=== PATIENT | male | born 1945 | race African-American/Black ===

== ENCOUNTER 2022-01-28 09:25 | Emergency (ER) | payer MEDICARE, OTHER ==
[~2022-01-28] VITALS: Ht 182.9 cm; Wt 104.3 kg
[2022-01-28 10:58] LABS: Basophils # (auto) 0 10 ^3/uL (0-0.2); Basophils % (auto) 0.4 % (0.0-2.0); Eosinophils # (auto) 0.1 10 ^3/uL (0-0.8); Eosinophils % (auto) 1.4 % (0.0-7.0); Hematocrit 36.7 % (41.0-53.0); Hemoglobin 12.7 g/dL (13.5-17.5); Lymphocytes # (auto) 1.1 10 ^3/uL (0.4-5.4); Lymphocytes % (auto) 15.1 % (10.0-50.0); Mean Corpuscular Hemoglobin 32.7 pg (28.0-32.0); Mean Corpuscular Hgb Conc. 34.5 g/dL (32.0-36.0); Mean Corpuscular Volume 94.7 fL (80.0-100.0); Monocytes # (auto) 0.4 10 ^3/uL (0-1.3); Monocytes % (auto) 5.3 % (0.0-12.0); Neutrophils # (auto) 5.4 10 ^3/uL (1.6-8.6); Neutrophils % (auto) 77.8 % (37.0-80.0); Red Blood Cells 3.87 10^6/uL (4.5-5.90); Red Cell Distribution Width 13.8 % (11.8-14.3)
[2022-01-28 11:36] LABS: BUN/Creatinine Ratio 10.7; Calcium 10.4 mg/dL (8.5-10.1); Potassium 3.3 mmol/L (3.5-5.1)
[2022-01-28 11:44] LABS: Bilirubin, Total 0.4 mg/dL (0.2-1.0); Total Protein 6.3 g/dL (6.4-8.2)
[2022-01-28] MEDS ORDERED: POTASSIUM EFFERVESENT TAB 25 MEQ PO ONE (12:00)
[2022-01-28 13:28] VITALS: BP 160/100
== END 2022-01-28 13:40 | disposition short-term general hospital (02) ==
LOC: EDBD 09:25 → ER 09:25
DX: R55 Syncope and collapse (principal); E78.5 Hyperlipidemia, unspecified; I10 Essential (primary) hypertension
CPT/HCPCS: 36415; 71045; 80053; 83735; 83880; 84484; 85025; 93005

== ENCOUNTER 2023-03-06 10:33 | Emergency (ER) | payer OTHER ==
[~2023-03-06] VITALS: Ht 185.4 cm; Wt 122.0 kg
[2023-03-06 11:23] LABS: Basophils # (auto) 0 10 ^3/uL (0-0.2); Basophils % (auto) 0.3 % (0.0-2.0); Eosinophils # (auto) 0.1 10 ^3/uL (0-0.8); Eosinophils % (auto) 1.1 % (0.0-7.0); Hemoglobin 11.7 g/dL (13.5-17.5); Mean Corpuscular Hgb Conc. 33.6 g/dL (32.0-36.0); Mean Corpuscular Volume 98.4 fL (80.0-100.0); Monocytes # (auto) 0.7 10 ^3/uL (0-1.3); Monocytes % (auto) 6.8 % (0.0-12.0); Neutrophils # (auto) 7.2 10 ^3/uL (1.6-8.6); Neutrophils % (auto) 71.8 % (37.0-80.0); Nucleated Red Blood Cells % 0.2 %; Red Blood Cells 3.55 10^6/uL (4.5-5.90); Red Cell Distribution Width 13.1 % (11.8-14.3)
[2023-03-06 11:30] LABS: Albumin 2.9 g/dL (3.4-5.0); Calcium 9.1 mg/dL (8.5-10.1)
[2023-03-06] MEDS ORDERED: EPINEPHrine HCL 1 MG/10 ML SYRG ONE (11:30)
[2023-03-06 11:33] LABS: BUN/Creatinine Ratio 13.9 (10.0-20.0); Bilirubin, Total 0.6 mg/dL (0.2-1.0); Total Protein 5.9 g/dL (6.4-8.2)
[2023-03-06] MEDS ORDERED: CALCIUM GLUC 1,000mg/50ml-NS 50 ML IV ONE ×2 (11:36→11:45)
[2023-03-06] MEDS ORDERED: EPINEPHrine HCL 1 MG/10 ML SYRG IV ONE (11:45)
[2023-03-06] MEDS ORDERED: CALCIUM GLUC 1,000mg/50ml-NS 100 ML IV ONE (11:51)
[2023-03-06] MEDS ORDERED: POTASSIUM CHL 20 Meq TABLET PO ONE (12:00)
[2023-03-06] MEDS ORDERED: SOD CHL 0.9%/ KCL 40MEQ 1,000 ML IV ONE (12:00)
[2023-03-06 12:25] LABS: INR 1.15 (0.9-1.15); Partial Thromboplastin Time 23.6 sec (24.6-33.4)
[2023-03-06] MEDS: CALCIUM GLUC 1,000mg/50ml-NS 50 ML IV SCH ×2 (12:53→12:54)
[2023-03-06 16:02] VITALS: BP 146/88
== END 2023-03-06 16:40 | disposition short-term general hospital (02) ==
LOC: EDBD 10:33 → ER 10:33
DX: I48.91 Unspecified atrial fibrillation (principal); I49.8 Other specified cardiac arrhythmias; R55 Syncope and collapse; N18.9 Chronic kidney disease, unspecified
CPT/HCPCS: 36415; 70450; 71045; 72125; 80053; 83605; 83735; 83880; 84484; 85025; 85379; 85610; 85730; 87040; 93005; 96365; 96368; 99285; J0171; J0610; J7120

== ENCOUNTER 2023-11-17 07:23 | Inpatient (IN) | payer OTHER ==
[2023-11-17] VITALS (7 sets, daily range): BP systolic 128–179; BP diastolic 78–116; PULSE 60–90; RESP 15–22; TEMP 97.7–98.1; O2SAT 2–100
[~2023-11-17] VITALS: Ht 195.6 cm; Wt 112.7 kg
[2023-11-17 08:26] LABS: Basophils # (auto) 0 10 ^3/uL (0-0.2); Basophils % (auto) 0.3 % (0.0-2.0); Eosinophils # (auto) 0.1 10 ^3/uL (0-0.8); Eosinophils % (auto) 0.7 % (0.0-7.0); Hematocrit 42.7 % (41.0-53.0); Hemoglobin 14.2 g/dL (13.5-17.5); Lymphocytes # (auto) 2.1 10 ^3/uL (0.4-5.4); Lymphocytes % (auto) 23.6 % (10.0-50.0); Mean Corpuscular Hemoglobin 32.1 pg (28.0-32.0); Mean Corpuscular Hgb Conc. 33.1 g/dL (32.0-36.0); Mean Corpuscular Volume 96.9 fL (80.0-100.0); Monocytes # (auto) 0.5 10 ^3/uL (0-1.3); Monocytes % (auto) 5.4 % (0.0-12.0); Neutrophils # (auto) 6.3 10 ^3/uL (1.6-8.6); Nucleated Red Blood Cells % 0.1 %; Red Cell Distribution Width 13.7 % (11.8-14.3)
[2023-11-17] MEDS: ONDANSETRON HCL 4 MG/2 ML VIAL IV ONE (08:45)
[2023-11-17 08:46] LABS: Alanine Aminotransferase 17 U/L (7-40); Alkaline Phosphatase 114 U/L (46-116); Anion Gap 7 (5-15); Aspartate Aminotransferase 29 U/L (13-40); BUN/Creatinine Ratio 16.4 (10.0-20.0); Blood Urea Nitrogen 28 mg/dL (9-23); Calcium 11.2 mg/dL (8.5-10.1); Carbon Dioxide 30 mmol/L (20-30); Chloride 105 mmol/L (98-107); Glucose 121 mg/dL (74-106); Sodium 142 mmol/L (136-145)
[2023-11-17] MEDS: SODIUM CHLORIDE 0.9% 1,000 ML IV ONE (08:46)
[2023-11-17] MEDS: HYDROmorphone HCL 2 MG/ML VL/or syr IV ONE (08:46)
[2023-11-17 08:47] LABS: Bilirubin, Total 0.8 mg/dL (0.2-1.0); Total Protein 6.4 g/dL (5.7-8.2)
[2023-11-17 08:58] LABS: INR 1.13 (0.9-1.15); Partial Thromboplastin Time 24.7 SEC (24.5-34.5); Prothrombin Time 11.8 sec (9.3-11.8)
[2023-11-17 11:08] LABS: Magnesium 1.9 mg/dL (1.6-2.6)
[2023-11-17] MEDS ORDERED: NITROGLYCERIN 0.4 MG SL TAB SL PRN ×2 (11:15→11:30)
[2023-11-17] MEDS ORDERED: ONDANSETRON HCL 4 MG/2 ML VIAL IV PRN ×2 (11:15→11:30)
[2023-11-17] MEDS ORDERED: DOCUSATE SOD 100 MG CAP PO PRN (11:15)
[2023-11-17] MEDS ORDERED: SODIUM CHLORIDE 0.9% 1,000 ML IV SCH (11:15)
[2023-11-17] MEDS ORDERED: ACETAMINOPHEN 325 MG TAB PO PRN (11:15)
[2023-11-17] MEDS ORDERED: HYDROcodone-ACET 5/325MG TAB PO PRN (11:15)
[2023-11-17] MEDS ORDERED: MORPHINE SULFATE INJ 2 MG/ml SYRG IV PRN ×3 (11:15→11:30)
[2023-11-17] MEDS: PANTOPRAZOLE 40 MG/10 ML VIAL INJ IV ONE (11:30)
[2023-11-17 11:46] LABS: Triglycerides 63 mg/dL (< 150)
[2023-11-17 11:47] LABS: LDL Cholesterol 53 mg/dL (< 100)
[2023-11-17 11:48] LABS: Cholesterol 110 mg/dL (< 200); HDL Cholesterol 39 mg/dL (40-59)
[2023-11-17] MEDS: MORPHINE SULFATE INJ 2 MG/ml SYRG IV PRN (12:48)
[2023-11-17] MEDS: SODIUM CHLORIDE 0.9% 1,000 ML IV SCH (12:50)
[2023-11-17] MEDS: hydrALAZINE HCL 20 MG/ML VL IV PRN (13:07)
[2023-11-17] MEDS: LISINOPRIL 5 MG TAB PO ONE (15:31)
[2023-11-17] MEDS: HYDROcodone-ACET 5/325MG TAB PO PRN (16:33)
[2023-11-17] MEDS: ENOXAPARIN SOD 120 MG/0.8 ML SYRINGE SC ONE (18:00)
[2023-11-17] MEDS ORDERED: OMEP20TA PO (18:03)
[2023-11-17] MEDS ORDERED: DOXA4TAB83 PO (18:03)
[2023-11-17] MEDS ORDERED: ALLO100T PO (18:03)
[2023-11-17] MEDS ORDERED: METH-928 PO (18:03)
[2023-11-17] MEDS ORDERED: BUPR-349 PO (18:03)
[2023-11-17] MEDS ORDERED: AMLO1TAB22 PO (18:03)
[2023-11-17] MEDS ORDERED: BACL10TA PO (18:03)
[2023-11-17] MEDS ORDERED: METO25TA5 PO (18:03)
[2023-11-17] MEDS ORDERED: FINA5TAB4 PO (18:03)
[2023-11-17] MEDS ORDERED: ATOR40TA52 PO (18:03)
[2023-11-17] MEDS ORDERED: LISI40TA16 PO (18:03)
[2023-11-17] MEDS: hydroCHLOROthiazide 25 MG TAB PO ONE (19:46)
[2023-11-17] MEDS: NIFEdipine ER 30 MG TAB PO ONE (19:47)
[2023-11-18] VITALS (8 sets, daily range): BP systolic 98–151; BP diastolic 45–102; PULSE 62–104; RESP 16–18; TEMP 97.8–98.5; O2SAT 96–98
[2023-11-18 06:36] LABS: Basophils # (auto) 0.1 10 ^3/uL (0-0.2); Basophils % (auto) 0.7 % (0.0-2.0); Eosinophils # (auto) 0.1 10 ^3/uL (0-0.8); Eosinophils % (auto) 0.7 % (0.0-7.0); Hematocrit 45.5 % (41.0-53.0); Hemoglobin 15.5 g/dL (13.5-17.5); Lymphocytes # (auto) 2.6 10 ^3/uL (0.4-5.4); Lymphocytes % (auto) 24.1 % (10.0-50.0); Mean Corpuscular Hemoglobin 33.8 pg (28.0-32.0); Mean Corpuscular Volume 99.2 fL (80.0-100.0); Monocytes % (auto) 8.9 % (0.0-12.0); Neutrophils % (auto) 65.6 % (37.0-80.0); Nucleated Red Blood Cells % 0.1 %; Red Blood Cells 4.59 10^6/uL (4.5-5.90); Red Cell Distribution Width 13.5 % (11.8-14.3); White Blood Cell 10.7 10^3/uL (4.4-10.8)
[2023-11-18] MEDS: PANTOPRAZOLE 40 MG/10 ML VIAL INJ IV SCH (09:31)
[2023-11-18] MEDS: hydroCHLOROthiazide 25 MG TAB PO SCH (09:32)
[2023-11-18] MEDS: NIFEdipine ER 30 MG TAB PO SCH (09:32)
[2023-11-18] MEDS ORDERED: LISINOPRIL 5 MG TAB PO SCH (10:00)
[2023-11-18] MEDS: SODIUM CHLORIDE 0.9% 1,000 ML IV SCH (11:15)
[2023-11-18 12:27] LABS: Amphetamine Screen, Urine Neg (NEGATIVE); Barbiturate Scree,Urine Neg (NEGATIVE); Benzodiazephine Screen, Urine Neg (NEGATIVE); Cocaine Screen, Urine Neg (NEGATIVE); Opiate Scree,Urine Neg (NEGATIVE)
[2023-11-18] MEDS: FINASTERIDE 5 MG TAB PO ONE (12:27)
[2023-11-18] MEDS: HYDROmorphone HCL 2 MG/ML VL/or syr IV PRN (12:27)
[2023-11-18] MEDS: buPROPion HCL 75 MG TAB PO ONE (12:27)
[2023-11-18 12:28] LABS: Cannabinoid Screen, Urine Pos (NEGATIVE); Phencyclidine Screen, Urine Neg (NEGATIVE)
[2023-11-18 12:43] LABS: Urine Bacteria FEW /hpf (None Seen); Urine Blood Negative /uL (Negative); Urine Clarity Clear (Clear); Urine Color Colorless (Yellow); Urine Protein, UAD Negative (Negative); Urine Urobilinogen Normal (Negative); Urine WBC 5 /hpf (0 - 3); Urine pH 6.5 (5.0-8.0)
[2023-11-18] MEDS: buPROPion HCL 75 MG TAB PO SCH (18:31)
[2023-11-19 05:00] VITALS: BP 148/100; PULSE 58; RESP 16; TEMP 98.8; O2SAT 91
[2023-11-19 05:27] LABS: Basophils # (auto) 0 10 ^3/uL (0-0.2); Basophils % (auto) 0.3 % (0.0-2.0); Eosinophils # (auto) 0.1 10 ^3/uL (0-0.8); Eosinophils % (auto) 0.8 % (0.0-7.0); Hematocrit 42.9 % (41.0-53.0); Hemoglobin 14.5 g/dL (13.5-17.5); Lymphocytes % (auto) 21.7 % (10.0-50.0); Mean Corpuscular Hemoglobin 32.4 pg (28.0-32.0); Mean Corpuscular Hgb Conc. 33.9 g/dL (32.0-36.0); Mean Corpuscular Volume 95.8 fL (80.0-100.0); Monocytes # (auto) 0.6 10 ^3/uL (0-1.3); Neutrophils # (auto) 6.4 10 ^3/uL (1.6-8.6); Neutrophils % (auto) 70.2 % (37.0-80.0); Red Blood Cells 4.48 10^6/uL (4.5-5.90); Red Cell Distribution Width 13.1 % (11.8-14.3); White Blood Cell 9.1 10^3/uL (4.4-10.8)
[2023-11-19 05:35] LABS: Chloride 102 mmol/L (98-107); Potassium 2.9 mmol/L (3.5-5.1); Sodium 138 mmol/L (136-145)
[2023-11-19 05:36] LABS: Anion Gap 7 (5-15); Carbon Dioxide 29 mmol/L (20-30)
[2023-11-19 05:37] LABS: Calcium 11.2 mg/dL (8.5-10.1)
[2023-11-19 05:42] LABS: BUN/Creatinine Ratio 12.4 (10.0-20.0); Blood Urea Nitrogen 15 mg/dL (9-23); Glucose 112 mg/dL (74-106)
[2023-11-19] MEDS ORDERED: fentaNYL CITRATE 100 MCG/2 ML VL ONE (07:04)
[2023-11-19] MEDS ORDERED: MIDAZOLAM HCL 2MG/2ML 2ml VIAL (1mg/ml) ONE (07:05)
[2023-11-19] MEDS ORDERED: PROPOFOL 10 MG/ML 20 ML IV ONE (07:06)
[2023-11-19] MEDS ORDERED: PHENYLEPHRINE HCL 10 MG/ML VL ONE (08:02)
[2023-11-19] MEDS ORDERED: ePHEDrine SULFATE 50 MG/ML AMP ONE (08:03)
[2023-11-19] MEDS: VANCOMYCIN HCL 1000 MG VL ONE (08:32)
[2023-11-19 09:08] VITALS: PULSE 101; RESP 20; O2SAT 96
[2023-11-19] MEDS ORDERED: HYDROmorphone HCL 2 MG/ML VL/or syr IV PRN (09:30)
[2023-11-19] MEDS ORDERED: ENOXAPARIN SOD 30 MG/0.3 ML SYRINGE SC SCH (10:00)
[2023-11-19] MEDS: FINASTERIDE 5 MG TAB PO SCH (10:15)
[2023-11-19] MEDS: ceFAZolin 1GM/50ML 50 ML IV SCH (10:15)
[2023-11-19] MEDS: ENOXAPARIN SOD 40 MG/0.4 ML SYRINGE SC SCH (10:15)
[2023-11-19] MEDS: CLINDAMYCIN 600MG IV 50 ML IV SCH (12:28)
[2023-11-19 13:00] VITALS: BP 112/74; PULSE 53; RESP 16; TEMP 97.4; O2SAT 93
[2023-11-19 16:54] VITALS: BP 165/102; PULSE 66; RESP 20; TEMP 98; O2SAT 96
[2023-11-19 20:00] VITALS: PULSE 104
[2023-11-19 21:17] VITALS: BP 146/108; PULSE 59; RESP 19; TEMP 97.8; O2SAT 97
[2023-11-19] MEDS: ACETAMINOPHEN 325 MG TAB PO PRN (21:51)
[2023-11-20 04:58] VITALS: BP 171/120; PULSE 82; RESP 16; TEMP 98.9; O2SAT 99
[2023-11-20 05:21] LABS: Hematocrit 41.5 % (41.0-53.0)
[2023-11-20] MEDS: ceFAZolin 2 GM/D5W50ml 50 ML IV ONE (07:36)
[2023-11-20] MEDS: TRANEXAMIC ACID 20 ML ONE (07:36)
[2023-11-20] MEDS: dilTIAZem 25 MG/5 ML VIAL IV ONE (07:37)
[2023-11-20] MEDS: ROPIVACAINE 0.5% (5MG/ML) 20ML AMPULE IJ ONE (07:37)
[2023-11-20 08:30] VITALS: PULSE 103; PULSE 120; RESP 16
[2023-11-20 08:41] VITALS: BP 158/108; PULSE 62; RESP 14; TEMP 98.5; O2SAT 96
[2023-11-20] MEDS: LACTATED RINGER'S 1,000 ML IV SCH (09:19)
[2023-11-20] MEDS: CLINDAMYCIN 600MG IV 50 ML IV ONE (10:31)
[2023-11-20] MEDS: METOPROLOL TARTRATE 25 MG TAB PO ONE (12:53)
[2023-11-20] MEDS: amLODIPine BESYLATE 5 MG TAB PO ONE (12:53)
[2023-11-20] MEDS: LISINOPRIL 20 MG TAB PO ONE ×2 (12:59→13:04)
[2023-11-20] MEDS: DOCUSATE SOD 100 MG CAP PO PRN (13:03)
[2023-11-20 17:00] VITALS: BP 145/101; PULSE 74; RESP 14; TEMP 98.4; O2SAT 100
[2023-11-20 20:00] VITALS: PULSE 80; PULSE 82; RESP 18; O2SAT 96
[2023-11-20] MEDS: METOPROLOL TARTRATE 25 MG TAB PO SCH (21:23)
[2023-11-20 22:00] VITALS: BP 145/107; PULSE 80; RESP 18; TEMP 98.1; O2SAT 96
[2023-11-21] VITALS (8 sets, daily range): BP systolic 144–156; BP diastolic 94–111; PULSE 73–108; RESP 15–18; TEMP 98–98.7; O2SAT 96–100
[2023-11-21 04:22] LABS: Hematocrit 37.7 % (41.0-53.0); Hemoglobin 12.8 g/dL (13.5-17.5)
[2023-11-21] MEDS: LISINOPRIL 20 MG TAB PO SCH (09:33)
[2023-11-21] MEDS: amLODIPine BESYLATE 5 MG TAB PO SCH (09:34)
[2023-11-21] MEDS: POTASSIUM CHL 20 Meq TABLET PO ONE (17:56)
[2023-11-22] VITALS (7 sets, daily range): BP systolic 138–157; BP diastolic 86–114; PULSE 64–88; RESP 16–97; TEMP 97.3–98.3; O2SAT 95–99
[2023-11-22 05:31] LABS: Hematocrit 37.8 % (41.0-53.0); Hemoglobin 12.8 g/dL (13.5-17.5)
[2023-11-22 11:05] LABS: Chloride 107 mmol/L (98-107); Potassium 3.6 mmol/L (3.5-5.1); Sodium 139 mmol/L (136-145)
[2023-11-22 11:06] LABS: Anion Gap 4 (5-15); Calcium 11.2 mg/dL (8.5-10.1); Carbon Dioxide 28 mmol/L (20-30)
[2023-11-22 11:11] LABS: Blood Urea Nitrogen 21 mg/dL (9-23); Glucose 115 mg/dL (74-106)
[2023-11-22] MEDS: TEMAZEPAM 15 MG CAP PO ONE (21:35)
[2023-11-23 05:00] VITALS: BP 154/113; PULSE 73; RESP 19; TEMP 97.6; O2SAT 95
[2023-11-23 09:00] VITALS: BP 130/102; PULSE 72; RESP 19; TEMP 98; O2SAT 100
[2023-11-23] MEDS: PANTOPRAZOLE 40 MG TAB PO SCH (09:23)
[2023-11-23 13:00] VITALS: BP 127/100; PULSE 60; RESP 18; TEMP 98; O2SAT 95
[2023-11-23] MEDS ORDERED: RIVSET PO (13:31)
[2023-11-23] MEDS ORDERED: HYDR1TAB97 PO (13:31)
[2023-11-23 17:08] VITALS: BP 160/115; PULSE 68; RESP 17; TEMP 97.2; O2SAT 98
[2023-11-23 20:00] VITALS: PULSE 74; RESP 18; O2SAT 99
[2023-11-23 22:00] VITALS: BP 138/95; PULSE 65; RESP 17; TEMP 97.7; O2SAT 99
[2023-11-24 05:00] VITALS: BP 149/113; PULSE 75; RESP 18; TEMP 98; O2SAT 98
[2023-11-24 09:00] VITALS: BP 145/109; PULSE 73; RESP 19; TEMP 97.3; O2SAT 96
[2023-11-24] MEDS: amLODIPine BESYLATE 5 MG TAB PO ONE (12:30)
[2023-11-24 13:08] VITALS: BP 156/101; PULSE 63; RESP 17; TEMP 98; O2SAT 93
[2023-11-24 17:08] VITALS: BP 158/105; PULSE 65; RESP 18; TEMP 98.1; O2SAT 99
[2023-11-24 22:00] VITALS: BP 157/100; PULSE 70; RESP 17; TEMP 97.4; O2SAT 98
[2023-11-25 05:00] VITALS: BP 151/100; PULSE 58; RESP 18; TEMP 97.9; O2SAT 98
[2023-11-25 07:39] VITALS: BP 156/113; PULSE 65; RESP 16; TEMP 98.3; O2SAT 97
[2023-11-25 08:00] VITALS: PULSE 65; RESP 17; O2SAT 97
[2023-11-25] MEDS: amLODIPine BESYLATE 5 MG TAB PO SCH (08:58)
[2023-11-25 11:28] VITALS: BP 130/103; PULSE 60; RESP 18; TEMP 97.6; O2SAT 94
[2023-11-25 13:44] VITALS: BP 130/103; PULSE 60; RESP 16; TEMP 97.6; O2SAT 94
== END 2023-11-25 14:55 | disposition home health service (06) | DRG 521 ==
LOC: ER 07:23 → EDBD 07:23 → TELE-EAST 11:04 → TELE 11:04 → ER 11:04 → TELE-EAST 15:50 → EAST 11-22 10:54
PROVIDERS: ADMIT Nurse Practitioner Family; ATTEND Internal Medicine
PROC: 0SRS019 Replacement of Left Hip Joint, Femoral Surface with Metal Synthetic Substitute, Cemented, Open Approach (ICD-10-PCS; principal; 2023-11-19 07:33)
DX: S72.092A Other fracture of head and neck of left femur, initial encounter for closed fracture (principal); N17.0 Acute kidney failure with tubular necrosis; I48.19 Other persistent atrial fibrillation; E78.5 Hyperlipidemia, unspecified; E66.9 Obesity, unspecified; E83.52 Hypercalcemia; I16.0 Hypertensive urgency; N18.32 Chronic kidney disease, stage 3b; I51.7 Cardiomegaly; I12.9 Hypertensive chronic kidney disease with stage 1 through stage 4 chronic kidney disease, or unspecified chronic kidney disease; W01.0XXA Fall on same level from slipping, tripping and stumbling without subsequent striking against object, initial encounter; F41.9 Anxiety disorder, unspecified; M17.12 Unilateral primary osteoarthritis, left knee; N40.0 Benign prostatic hyperplasia without lower urinary tract symptoms; M10.9 Gout, unspecified; Y92.009 Unspecified place in unspecified non-institutional (private) residence as the place of occurrence of the external cause; Z82.49 Family history of ischemic heart disease and other diseases of the circulatory system; Z90.79 Acquired absence of other genital organ(s); Y93.89 Activity, other specified; Y99.8 Other external cause status; Z68.29 Body mass index [BMI] 29.0-29.9, adult
CPT/HCPCS: 36415; 70450; 71045; 72170; 73560; 73700; 80048; 80053; 80061; 80307; 81001; 83735; 83880; 83930; 84132; 84443; 84484; 85014; 85018; 85025; 85610; 85730; 86850; 86900; 86901; 93005; 93306; 96361; 96374; 96375; 97110; 97116; 97163; 97530; C9113; G0378; J2250; J2405; J2704; J3490